=== PATIENT | male | born 1985 | race African-American/Black ===

== ENCOUNTER → 2024-03-30 | Outpatient (CLI) | payer OTHER ==
[~2024-03-30] MED LIST: Colace100 MG PO; Percocet 5-3251 EACH PO; Preparation H26 GM PR
[2024-03-30 11:48] LABS: BASOPHILS ABSOLUTE AUTO 0.02 K/mm3 (0.00-0.23); BASOPHILS PERCENT AUTO 0 % (0-2); EOSINOPHILS ABSOLUTE AUTO 0.04 K/mm3 (0.00-0.68); EOSINOPHILS PERCENT AUTO 1 % (0-6); Hematocrit 34.8 % (37.0-53.0); Hemoglobin 11.8 g/dL (13.5-17.5); IMMATURE GRAN ABSOLUTE AUTO 0.02 K/mm3 (0.00-0.10); IMMATURE GRAN PERCENT AUTO 0 % (0-1); LYMPHOCYTES ABSOLUTE AUTO 0.83 K/mm3 (0.84-5.20); LYMPHOCYTES PERCENT AUTO 17 % (21-46); MONOCYTES ABSOLUTE AUTO 0.64 K/mm3 (0.16-1.47); MONOCYTES PERCENT AUTO 13 % (4-13); Mean Corpuscular HGB Conc 33.9 g/dL (31.5-36.5); Mean Corpuscular Volume 83 fL (80-100); NEUTROPHILS ABSOLUTE AUTO 3.37 K/mm3 (1.96-9.15); NEUTROPHILS PERCENT AUTO 69 % (41-73); Platelet Count 414 K/mm3 (150-400); RDW Coefficient Variation 12.5 % (11.7-14.2); RDW Standard Deviation 37.4 fL (35.1-46.3); Red Blood Cell Count 4.22 M/mm3 (4.30-5.90); White Blood Cell Count 4.92 K/mm3 (4.00-11.30)
[2024-03-30 11:59] LABS: Albumin, Blood 2.5 g/dL (3.4-5.0); Albumin/Globulin Ratio 0.5 (0.8-1.8); Bilirubin, Total 0.4 mg/dL (0.1-1.0); Bun/Creatinine Ratio 3.1 (12.0-20.0); Calcium, Blood 8.6 mg/dL (8.5-10.1); Creatinine, Blood 0.65 mg/dL (0.60-1.20); Globulin, Blood 5.3 g/dL (2.2-4.0); Potassium, Blood 3.4 mmol/L (3.5-5.5); Total Protein, Blood 7.8 g/dL (6.4-8.2)
== END ==
LOC: LAB SHORT 11:44 → LAB 11:44
PROVIDERS: Chiropractor
DX: R10.9 Unspecified abdominal pain (principal)
CPT/HCPCS: 80053; 83690; 85025

== ENCOUNTER 2024-04-08 13:21 | Emergency (ER) | payer OTHER ==
[~2024-04-08] VITALS: Ht 172.7 cm; Wt 64.0 kg
[2024-04-08 13:58] LABS: BASOPHILS ABSOLUTE AUTO 0.03 K/mm3 (0.00-0.23); BASOPHILS PERCENT AUTO 1 % (0-2); EOSINOPHILS ABSOLUTE AUTO 0.01 K/mm3 (0.00-0.68); EOSINOPHILS PERCENT AUTO 0 % (0-6); Hematocrit 35.3 % (37.0-53.0); Hemoglobin 11.9 g/dL (13.5-17.5); IMMATURE GRAN ABSOLUTE AUTO 0.04 K/mm3 (0.00-0.10); IMMATURE GRAN PERCENT AUTO 1 % (0-1); LYMPHOCYTES ABSOLUTE AUTO 0.79 K/mm3 (0.84-5.20); LYMPHOCYTES PERCENT AUTO 13 % (21-46); MONOCYTES ABSOLUTE AUTO 0.69 K/mm3 (0.16-1.47); MONOCYTES PERCENT AUTO 12 % (4-13); Mean Corpuscular HGB 27.5 pg (26.0-34.0); Mean Corpuscular HGB Conc 33.7 g/dL (31.5-36.5); Mean Corpuscular Volume 82 fL (80-100); Mean Platelet Volume 8.7 fL (9.1-12.4); NEUTROPHILS ABSOLUTE AUTO 4.44 K/mm3 (1.96-9.15); NEUTROPHILS PERCENT AUTO 74 % (41-73); Platelet Count 475 K/mm3 (150-400); RDW Coefficient Variation 12.5 % (11.7-14.2); RDW Standard Deviation 37.9 fL (35.1-46.3); Red Blood Cell Count 4.32 M/mm3 (4.30-5.90)
[2024-04-08 14:11] LABS: Albumin, Blood 2.4 g/dL (3.4-5.0); Albumin/Globulin Ratio 0.5 (0.8-1.8); Bilirubin, Total 0.4 mg/dL (0.1-1.0); Bun/Creatinine Ratio 10.5 (12.0-20.0); Calcium, Blood 8.8 mg/dL (8.5-10.1); Creatinine, Blood 0.57 mg/dL (0.60-1.20); Globulin, Blood 5.3 g/dL (2.2-4.0); Potassium, Blood 4.2 mmol/L (3.5-5.5); Total Protein, Blood 7.7 g/dL (6.4-8.2)
[2024-04-08] MEDS ORDERED: Colace100 MG PO (18:26)
[2024-04-08] MEDS ORDERED: Preparation H26 GM PR (18:26)
[2024-04-08] MEDS ORDERED: Percocet 5-3251 EACH PO (18:26)
== END 2024-04-08 18:35 | disposition home or self-care (01) ==
LOC: ER 13:21
PROVIDERS: Emergency Medicine
DX: C76.2 Malignant neoplasm of abdomen (principal); K64.9 Unspecified hemorrhoids; D17.9 Benign lipomatous neoplasm, unspecified
CPT/HCPCS: 74177; 80053; 83690; 85025; 99284-25; Q9967

== ENCOUNTER 2024-04-12 15:49 | Inpatient (IN) | payer OTHER ==
[~2024-04-12] VITALS: Ht 172.7 cm; Wt 61.4 kg
[2024-04-12 16:58] LABS: BASOPHILS ABSOLUTE AUTO 0.03 K/mm3 (0.00-0.23); BASOPHILS PERCENT AUTO 1 % (0-2); EOSINOPHILS ABSOLUTE AUTO 0.01 K/mm3 (0.00-0.68); EOSINOPHILS PERCENT AUTO 0 % (0-6); Hemoglobin 10.9 g/dL (13.5-17.5); IMMATURE GRAN ABSOLUTE AUTO 0.04 K/mm3 (0.00-0.10); IMMATURE GRAN PERCENT AUTO 1 % (0-1); LYMPHOCYTES ABSOLUTE AUTO 0.69 K/mm3 (0.84-5.20); LYMPHOCYTES PERCENT AUTO 11 % (21-46); MONOCYTES ABSOLUTE AUTO 0.65 K/mm3 (0.16-1.47); MONOCYTES PERCENT AUTO 10 % (4-13); Mean Corpuscular HGB 27.1 pg (26.0-34.0); Mean Corpuscular Volume 82 fL (80-100); Mean Platelet Volume 8.4 fL (9.1-12.4); NEUTROPHILS ABSOLUTE AUTO 5.08 K/mm3 (1.96-9.15); NEUTROPHILS PERCENT AUTO 78 % (41-73); Platelet Count 490 K/mm3 (150-400); RDW Coefficient Variation 12.8 % (11.7-14.2); RDW Standard Deviation 38.7 fL (35.1-46.3); Red Blood Cell Count 4.02 M/mm3 (4.30-5.90)
[2024-04-12 18:23] LABS: Albumin, Blood 2.2 g/dL (3.4-5.0); Albumin/Globulin Ratio 0.4 (0.8-1.8); Bilirubin, Total 0.3 mg/dL (0.1-1.0); Bun/Creatinine Ratio 13.2 (12.0-20.0); Calcium, Blood 8.4 mg/dL (8.5-10.1); Creatinine, Blood 0.6 mg/dL (0.60-1.20); Globulin, Blood 5.5 g/dL (2.2-4.0); Potassium, Blood 3.5 mmol/L (3.5-5.5); Total Protein, Blood 7.7 g/dL (6.4-8.2)
[2024-04-12 20:00] LABS: Source, Urine Condom Cath
[2024-04-12 20:04] LABS: Bilirubin, Urine Neg (Neg); Blood, Urine Neg (Neg); Glucose Qualitative, Urine Neg (Neg); Ketones, Urine Neg (Neg); Leukocyte Esterase, Urine Neg (Neg); Nitrite, Urine Neg (Neg); Protein, Urine Neg (Neg); Urobilinogen, Urine NORM (Normal)
[2024-04-12 20:10] LABS: Appearance, Urine Clear (Clear); Color, Urine Yellow (P-Yellow)
[2024-04-12 20:39] LABS: Influenza A, PCR NEGATIVE (NEGATIVE); Influenza B, PCR NEGATIVE (NEGATIVE); Resp Syncytial Virus, PCR NEGATIVE (NEGATIVE); SARS-Cov-2 (COVID-19) PCR, MMC NEGATIVE (NEGATIVE)
[2024-04-12] MEDS ORDERED: Piperacillin/Tazobactam Sod 4.5 GM in NS 100 ML IV ONE (21:50)
--- NOTE | 2024-04-13 00:02 | NUR ---
NEW ADMIT. PATIENT IS A NEW ADMIT TO ROOM 343 FROM THE ER. PATIENT ARRIVED TO ROOM 343 VIA WHEELCHAIR AND 1P TRANSFER. PATIENT ABLE TO SELF AMBULATE TO BED FROM WHEEL CHAIR WITH STEADY GAIT. PATIENT ARRIVED TO ROOM WITH FATHER AT SIDE WITH 2 PERSONAL BELONGINGS BAGS. PATIENT ORIENTED TO ROOM. THIS RN TO ASSUME CARE.
[2024-04-13 00:08] VITALS: BP 112/77
[2024-04-13] MEDS ORDERED: Ondansetron HCl 2 MG / ML 2ML Vial IV PRN (00:50)
[2024-04-13] MEDS ORDERED: FLU VACC TS2024-25(6MOS UP)/PF 45 MCG/0.5 ML SYRINGE IM SCH (00:50)
[2024-04-13] MEDS ORDERED: FentaNYL Citrate 50 MCG/ML 2 ML Injection IV PRN (00:50)
[2024-04-13] MEDS ORDERED: NS 1,000 ML IV SCH (00:50)
[2024-04-13] MEDS ORDERED: Albumin (Human) 25gm/100ml 100 ML IV ONE (02:50)
[2024-04-13] MEDS ORDERED: Cefepime HCl 1,000 MG in NS 100 ML IV SCH (03:00)
--- NOTE | 2024-04-13 03:59 | NUR ---
SHIFT SUMMARY. PATIENT IS A&OX4, PATIENT IS ABLE TO MAKE NEEDS KNOWN. PATIENT HAS A STRONG ACCENT THAT IS DIFFICULT TO UNDERSTAND AT TIMES. PATIENT IS PLEASANT AND DENIES PAIN AT THIS TIME. PATIENT HAS NS RUNNING AT 75MLS/HR AT THIS TIME. PATIENT RECEIVING ALBUMIN AND ABX. PATIENT TO HAVE A PARACENTESIS 04/13/24. PATIENT RESTING IN BED WITH RESPIRATIONS EQUAL AND UNLABORED. BED IS LOCKED IN THE LOWEST POSITION WITH CALL LIGHT IN REACH. CARE IS ONGOING.
[2024-04-13] MEDS ORDERED: Ampicillin Sod/Sulbactam Sod 3 GM in NS 100 ML IV SCH (06:00)
[2024-04-13 06:04] VITALS: BP 116/75
[2024-04-13 06:22] LABS: BASOPHILS ABSOLUTE AUTO 0.03 K/mm3 (0.00-0.23); BASOPHILS PERCENT AUTO 1 % (0-2); EOSINOPHILS PERCENT AUTO 0 % (0-6); Hematocrit 31.6 % (37.0-53.0); Hemoglobin 10.7 g/dL (13.5-17.5); IMMATURE GRAN ABSOLUTE AUTO 0.03 K/mm3 (0.00-0.10); IMMATURE GRAN PERCENT AUTO 1 % (0-1); LYMPHOCYTES ABSOLUTE AUTO 0.68 K/mm3 (0.84-5.20); LYMPHOCYTES PERCENT AUTO 15 % (21-46); MONOCYTES ABSOLUTE AUTO 0.59 K/mm3 (0.16-1.47); MONOCYTES PERCENT AUTO 13 % (4-13); Mean Corpuscular HGB 27.7 pg (26.0-34.0); Mean Corpuscular HGB Conc 33.9 g/dL (31.5-36.5); Mean Corpuscular Volume 82 fL (80-100); Mean Platelet Volume 8.5 fL (9.1-12.4); NEUTROPHILS ABSOLUTE AUTO 3.23 K/mm3 (1.96-9.15); NEUTROPHILS PERCENT AUTO 71 % (41-73); Platelet Count 446 K/mm3 (150-400); RDW Coefficient Variation 13.1 % (11.7-14.2); RDW Standard Deviation 39.3 fL (35.1-46.3); Red Blood Cell Count 3.86 M/mm3 (4.30-5.90); White Blood Cell Count 4.56 K/mm3 (4.00-11.30)
[2024-04-13 06:37] LABS: Albumin, Blood 2.4 g/dL (3.4-5.0); Albumin/Globulin Ratio 0.5 (0.8-1.8); Bilirubin, Total 0.4 mg/dL (0.1-1.0); Bun/Creatinine Ratio 7.4 (12.0-20.0); Calcium, Blood 8.6 mg/dL (8.5-10.1); Creatinine, Blood 0.54 mg/dL (0.60-1.20); Globulin, Blood 4.6 g/dL (2.2-4.0); Potassium, Blood 3.6 mmol/L (3.5-5.5)
[2024-04-13 08:28] VITALS: BP 113/78
[2024-04-13] MEDS ORDERED: Magnesium Hydroxide Conc 10 ML UDC PO PRN (09:00)
[2024-04-13] MEDS ORDERED: Polyethylene Glycol 3350 17 gm PO PRN (09:00)
[2024-04-13] MEDS ORDERED: Bisacodyl 10 MG Supp PR PRN (09:05)
[2024-04-13 11:03] LABS: International Normalized Ratio 1.19; Prothrombin Time Results 12.6 Sec (9.7-11.5)
[2024-04-13 15:24] VITALS: BP 113/71
--- NOTE | 2024-04-13 18:32 | NUR ---
SUMMARY- PT A/O X4, INDEPENDANT IN ROOM, STEADY ON FEET GOES TO THE BATHROOM TO VOID. HAS SEVERE HEMMHROIDS, ORDER FOR PREP H CREAM TO BE ADMIN TONIGHT AND STOOL SOFTNERS. TOLERATING FOOD AND FLUID. STATES THE NEED TO HAVE A BM. ORDER FOR LAXATIVE. PT HAD U.S. GUIDED PARACENTESIS DRAINING 3.7L FROM ABD ASCITES. PT FEELS MUCH BETTER AND LESS PRESSURE. DENIES NEED FOR PAIN MEDS. AND DENIES NAUSEA. DR UGALDE (RADIOLOGY) STAETS HE CAN NOT REACH THE ABCESS- RN MADE A CALL TO DR WOLFE TO NOTIFY HER THAT PROCEDURE COULDN'T BE DONE. PT STAYING ANOTHER NIGHT FOR CONSULT WITH SKINNY IN AM. WILL REPORT TO SHARATH PARHAM
[2024-04-13 19:55] VITALS: BP 109/74
[2024-04-13] MEDS ORDERED: Phenyleph/Mineral Oil/Petrolat 1 APPLIC/57 GM Tube PR SCH (21:00)
[2024-04-14] MEDS ORDERED: Acetaminophen 325 MG TABLET PO PRN (01:55)
[2024-04-14 03:27] VITALS: BP 104/72
--- NOTE | 2024-04-14 04:31 | NUR ---
SHIFT SUMMARY. PATIENT IS A&OX4. PATIENT IS ABLE TO MAKE HIS NEEDS KNOWN-PATIENT HAS A HEAVY ACCENT THAT IS DIFFICULT TO UNDERSTAND AT TIMES-PATIENT WILL REPEAT. PATIENT DENIES PAIN. PATIENT FEBRILE THIS SHIFT WITH AN ORAL TEMPERATURE OF 101.8 DEGREES FAHRENHEIT-ORDER FOR TYLENOL OBTAINED FROM DOCTOR AND ADMINISTERED TO PATIENT-TEMPERATURE DOWN TO 99.3 DEGREES FAHRENHEIT. PATIENT SLEEPING WITH RESPIRATIONS EQUAL AND UNLABORED. BED IS LOCKED IN THE LOWEST POSITION WITH CALL LIGHT IN REACH. CARE IS ONGOING.
[2024-04-14 07:59] VITALS: BP 106/73
[2024-04-14] MEDS ORDERED: Docusate Sodium 100 MG Cap PO SCH (09:00)
[2024-04-14 15:33] VITALS: BP 100/67
--- NOTE | 2024-04-14 18:15 | NUR ---
SUMMARY- PT A/O X4. AWAITING CONSULT FOR SKINNY CALLED IN 1130 AM, HAS NOT BEEN IN TO SEE PT YET. CLEARS MOST OF THE DAY, ATE DINNER BECAUSE NO PROCEDURE TONIGHT- PT HAD A GOOD BM TODAY. ABD LESS DISTENDED AFTER PARA, FEELS MUCH LESS PRESURE IN ABD. DENIES PAIN OR NAUSEA. WILL REPORT TO NOC RN
[2024-04-14 20:07] VITALS: BP 105/67
[2024-04-15] MEDS ORDERED: NS 250 ML IV PRN (00:20)
--- NOTE | 2024-04-15 05:03 | NUR ---
SHIFT SUMMARY ADMITTED FOR MALIGNANT ASCITES. FULL CODE. PLAN IS FOR IV ANTIB RX. IR CONSULT SKINNY WILL DRAIN AN ABDOMINAL ABSCESS FOUND ON CT SCAN. THIS PT WILL SEE DR. FAULKNER OUTPT FOR PERITONEAL CANCER TREATMENT DIAGNOSED ON 04/08/2024. PARACENTESIS PERFORMED ON 04/13/2024 - 3.7 LITERS OUT. HE IS ON CLEAR LIQUID DIET OF MIDNIGHT THIS SHIFT. TELEMETRY: NSR @ 94 BPM. INDEPENDENT IN ROOM. ON RA. LOW GRADE FEVERS NOTED, TYLENOL GIVEN.
[2024-04-15 07:51] VITALS: BP 92/64
[2024-04-15 13:37] LABS: Albumin, Body Fluid 1.9 g/dL
[2024-04-15 13:44] LABS: Glucose, Body Fluid 97 mg/dL; Lactate Dehydrogenase, Body Fl 227 U/L; Protein, Body Fluid 5.2 g/dL; Triglycerides, Body Fluid 32 mg/dL
[2024-04-15 15:46] VITALS: BP 106/66
--- NOTE | 2024-04-15 15:57 | NUR ---
[address] WOLFE IN PT ROOM. OKAY KEEP NPO SHE SPOKE TO DR BABB AND HE TO SEE PT TODAY;
--- NOTE | 2024-04-15 15:58 | NUR ---
[address] BABB IR [facility]. THEY RECOMMEND CALL CELL. CALLED HIS CELL. LMTC RE NPO
--- NOTE | 2024-04-15 16:54 | NUR ---
SPOKE TO DR WOLFE RE PT PROCEDURE. AND TO SEE IF PT MAY EAT. SHE CALLED DR BABB. STATES WILL SEE JULIA.
--- NOTE | 2024-04-15 16:57 | NUR ---
PT PLEASANT. COOP A/O X4. NO C/O PAIN. HAS REQUESTED WHEN DR WILL SEE TODAY IS NPO. I HAVE CALLED DR WOLFE AND DR BABB. THIS JOSSELYN DR WOLFE CALLED ME BACK AND STATES DR BABB TO SEE TONITE. PT AMBULATES ABOUT ROOM INDEPENDANTLY. NO NEW CONCERNS NOTED. BED IN LOW POSITION, CALL LITE IN REACH, CALLS APPROP
--- NOTE | 2024-04-15 18:04 | NUR ---
DAY SURG HERE FOR PT AT 2062
--- NOTE | 2024-04-15 19:23 | NUR ---
PT RETURNED TO ROOM. BEDSIDE REPORT GIVEN BY [facility] RN. STATES DR SKINNY HARVEY TO EAT REG DIET NOW. NO SEDATION FOR PROCEDURE. PT UP AMBULATING IN ROOM IND. DRAIN LEFT MID BACK. CREAMY COLOR FLUID IN DRAIN LINE. WOUND CDI. RN STATES DRAIN ONLY TAPED TO PATIENT. NO STITCHES.
[2024-04-15 21:18] VITALS: BP 104/69
--- NOTE | 2024-04-16 05:24 | NUR ---
SHIFT SUMMARY PT IS ALERT AND ORIENTED TIMES 4. PT ABLE TO MAKE NEEDS KNOWN. PT DENIES PAIN. WOUND DRAIN ASSESSED AND EMPTIED. MIDNITE CEFEPIME ADMINISTERED. PT TOLERATED WELL. TELE RUNNING N/S AT 70. SLIGHT ABDOMINAL DISTENTION. PT APPEARED TO SLEEP THROUGH THE NIGHT WITHOUT ISSUES. BED IN LOWEST POSITION, CALL LIGHT WITHIN REACH, RAILS TIMES 2.
[2024-04-16 06:20] VITALS: BP 92/63
[2024-04-16 07:41] VITALS: BP 98/66
--- NOTE | 2024-04-16 09:00 | NUR ---
0900 FAMILY FRIEND IN ROOM, GLADYS GONZALEZ, CAME TO [facility], DEMANDED TO KNOW WHY A DRAIN WAS PLACED IN PT BACK RIBCAGE AND NOT IN PT PT ABDOMEN. ADVISED FRIEND THAT IM A NURSE, NOT A DOCTOR. THAT IS A DR QUESTION. SHE STATES THE PRIMARY RN, I SHOULD KNOW WHY THE DR DEALT WITH THE WRONG PROBLEM. SHE IS ANGRY WITH ME FOR NOT FIXING THIS. I OFFERED TO CALL DR WOLFE TO ROOM. STATES WILL NOT NEED TO TALK TO ME ANYMORE. I CALLED DR WOLFE TO COME SEE PATIENT. SHE ALSO SAID THE [employer] THAT CAME IN TO DRAW BLOOD, AT HER INSTRUCTION, WOULD NOT TAKE BLOOD FROM HIS PERIPHERAL IV SITE. SAID THEY MUST NOT KNOW THEIR JOB. THAT THATS WHAT SHE TOLD THE TECH TO DO. EDUCATED THAT THE [employer] DOES NOT DRAW FROM ANY IV SITE, AND NO ONE WILL DRAW FROM THIS TYPE OF IV SITE. IF IT WAS A POWERGLIDE OR PICC, I WOULD PERFORM THE DRAW, NOT THE [employer]. THEY DO DRAWS DIRECTLY FROM THE PT. SHE STATES THE TECH LEFT AFTER HER INTERACTION.
[2024-04-16 09:48] LABS: BASOPHILS ABSOLUTE AUTO 0.03 K/mm3 (0.00-0.23); BASOPHILS PERCENT AUTO 1 % (0-2); EOSINOPHILS ABSOLUTE AUTO 0.05 K/mm3 (0.00-0.68); EOSINOPHILS PERCENT AUTO 1 % (0-6); Hematocrit 33.5 % (37.0-53.0); Hemoglobin 10.9 g/dL (13.5-17.5); IMMATURE GRAN ABSOLUTE AUTO 0.04 K/mm3 (0.00-0.10); IMMATURE GRAN PERCENT AUTO 1 % (0-1); LYMPHOCYTES ABSOLUTE AUTO 0.87 K/mm3 (0.84-5.20); LYMPHOCYTES PERCENT AUTO 17 % (21-46); MONOCYTES ABSOLUTE AUTO 0.48 K/mm3 (0.16-1.47); MONOCYTES PERCENT AUTO 9 % (4-13); Mean Corpuscular HGB Conc 32.5 g/dL (31.5-36.5); Mean Corpuscular Volume 83 fL (80-100); Mean Platelet Volume 8.4 fL (9.1-12.4); NEUTROPHILS ABSOLUTE AUTO 3.64 K/mm3 (1.96-9.15); NEUTROPHILS PERCENT AUTO 71 % (41-73); Platelet Count 501 K/mm3 (150-400); RDW Coefficient Variation 12.9 % (11.7-14.2); RDW Standard Deviation 39.3 fL (35.1-46.3); Red Blood Cell Count 4.03 M/mm3 (4.30-5.90); White Blood Cell Count 5.11 K/mm3 (4.00-11.30)
--- NOTE | 2024-04-16 10:00 | NUR ---
DR WOLFE TO ROOM AND DISCUSSED WITH PT AND FAMILY MEMBER, GLADYS. DR WOLFE LEFT ROOM AFTER LONG DISCUSSION AND STATES THEY HAVE A BETTER UNDERSTANDING OF PLAN AT THIS TIME. PLAN IS TO HAVE OUTPATIENT PET SCAN ON THURSDAY.
[2024-04-16 10:09] LABS: Bun/Creatinine Ratio 20.2 (12.0-20.0); Calcium, Blood 8.3 mg/dL (8.5-10.1); Creatinine, Blood 0.5 mg/dL (0.60-1.20); Potassium, Blood 4.3 mmol/L (3.5-5.5)
[2024-04-16 15:48] VITALS: BP 97/61
--- NOTE | 2024-04-16 18:24 | NUR ---
PT QUITE PLEASNT AND TALKATIVE TODAY. FRIEND GLADYS, QUITE DISAGREEABLE THIS MORNING. DISCUSSED WITH DR WOLFE AND SHE CAME TO ROOM. FRIEND BETTER. HER DAUGHTER CAME IN THIS AFT AND WE HAD DISCUSSION. MUCH MORE CALM AND COLLECTED. DRAIN IS TAPED TO RIB BACK AND DRAINING SCANT S/S , CDI. PT PLAN IS FOR PET SCAN ON THURSDAY, OUTPATIENT. BED IN LOW POSITION, CALL LITE IN REACH, CALLS APPROP
--- NOTE | 2024-04-16 18:46 | NUR ---
PT TEMP AT 102.1. GAVE PT TYLENOL. HE ATTEMPTED TO REFUSE. FURTHER EDUCATED, AGREES TO TRY. CALLED DR WOLFE. BLOOD CULTURES, 1 EACH ARM. ORDERED
[2024-04-16 19:57] VITALS: BP 98/71
[2024-04-17 03:17] VITALS: BP 95/60
--- NOTE | 2024-04-17 06:25 | NUR ---
SHIFT SUMMARY PT IS ALERT AND ORIENTED TIMES 4. PT ABLE TO MAKE NEEDS KNOWN. PT DENIES PAIN. WOUND DRAIN ASSESSED, LITTLE DRAINAGE. . MIDNITE CEFEPIME ADMINISTERED. PT TOLERATED WELL. TELE RUNNING N/S AT 84 NORMAL SINUS RHYTHM . SLIGHT ABDOMINAL DISTENTION. PT APPEARED TO SLEEP THROUGH THE NIGHT WITHOUT ISSUES. BED IN LOWEST POSITION, CALL LIGHT WITHIN REACH, RAILS TIMES 2.
[2024-04-17 07:45] VITALS: BP 108/73
--- NOTE | 2024-04-17 07:59 | NUR ---
PATIENT NOTED TO BE RUNNING FEVER. INITIALLY ACCEPTED OFFER OF APAP, BUT AFTER RETURNING TO ROOM WITH SAID MEDICATION, HE REFUSED, STATING HE'D LIKE TO TRY WALKING AROUND TO HELP DECREASE FEVER. EDUCATION PROVIDED REGARDING IMPORTANCE OF BOTH HOMEOPATHIC AND MEDICINAL TREATMENTS FOR FEVER. APAP HELD THROUGH MUTUAL DECISION MAKING.
[2024-04-17] MEDS ORDERED: MetroNIDAZOLE 500MG/NS 100 ml 100 ML IV SCH (12:00)
[2024-04-17 15:34] VITALS: BP 102/72
--- NOTE | 2024-04-17 18:20 | NUR ---
END OF SHIFT SUMMARY: A&Ox4. PLEASANT AND COOPERATIVE WITH CARE. CALLS APPROPRIATELY AND IS ABLE TO ADVOCATE NEEDS EFFECTIVELY. AMBULATES INDEPENDENTLY WITHIN THE ROOM. CONTINENT OF BOTH BOWEL AND BLADDER. LBM TODAY. MEDS WHOLE WITH FLUIDS. TELE NORMAL SINUS IN 80s. NO C/O PAIN OR DISCOMFORT. DENIED OFFER OF APAP SEVERAL TIMES TODAY FOR FEVER. THIS RN AND DR SUERO BOTH PROVIDED EDUCATION REGARDING IMPORTANCE OF FEVER CONTROL. BED IN LOWEST POSITION. CALL LIGHT WITHIN REACH. ALL NEEDS MET. REPORT TO ONCOMING NURSE.
[2024-04-17 19:33] VITALS: BP 111/79
[2024-04-18 04:05] VITALS: BP 119/84
--- NOTE | 2024-04-18 05:58 | NUR ---
SHIFT SUMMARY PT IS ALERT AND ORIENTED TIMES 4. PT ABLE TO MAKE NEEDS KNOWN. PT DENIES PAIN. WOUND DRAIN ASSESSED AND FLUSHED PER ORDER. THERE IS STILL MINIMAL DRAINAGE. . MIDNITE CEFEPIME ADMINISTERED WELL METRONIDAZOLE. PT ASKED TO TAKE A 30 MIN BREAK IN BETWEEN MED ADMINISTRATION SO HE COULD EAT AND PRAY. PT STATED THAT THE BACK TO BACK MEDICATION IS HARD ON HIS BODY AND TOLERATES THE LITTLE BREAK BETTER.. TELE RUNNING N/S AT 95 NORMAL SINUS RHYTHM . SLIGHT ABDOMINAL DISTENTION. PT APPEARED TO SLEEP THROUGH THE NIGHT WITHOUT ISSUES. BED IN LOWEST POSITION, CALL LIGHT WITHIN REACH, RAILS TIMES 2.
[2024-04-18 07:17] VITALS: BP 98/62
[2024-04-18] MEDS ORDERED: ACET325 PO (11:01)
[2024-04-18] MEDS ORDERED: AMOCLA875 PO (11:02)
[2024-04-18] MEDS ORDERED: METR500 PO (11:03)
[2024-04-18] MEDS ORDERED: ONDA4ODT MM (11:04)
[2024-04-18] MEDS ORDERED: MIRALAX17 GM PO (11:05)
--- NOTE | 2024-04-18 15:45 | NUR ---
DISCHARGE SUMMARY: A&Ox4. COOPERATIVE WITH MOST CARE, THOUGH PARTICULAR IN WHICH THE WAY CARE IS PROVIDED. DOES NOT LIKE LONG ABx Tx EVEN THOUGH HE IS ONLY LYING IN BED DURING THEM. CALLS APPROPRIATELY AND IS ABLE TO ADVOCATE NEEDS EFFECTIVELY. FAMILY AT BEDSIDE MOST OF DAY. AMBULATES INDEPENDENTLY. CONTINENT OF BOWEL AND BLADDER. MEDS WHOLE WITH FLUIDS. NO C/O PAIN OR DISCOMFORT. DR SAMANO TO BEDSIDE AND FLUSHED DRAIN; SANGUINEOUS, PURULENT DRAINAGE NOTED IN DRAIN TUBE AND COLLECTION BAG.DC'd IN ANTICIPATION OF GOING TO IMAGING FOR PET/CT SCAN. MEDICATIONS FAXED TO [facility]. INSTRUCTED TO FOLLOW-UP WITH PCP, IR AND ONCOLOGY. PATIENT LEFT FLOOR AT WITH ALL BELONGINGS AND DISCHARGE PACKET AT 1226, ESCORTED BY [facility] AND [facility]. TRANSPORTATION PROVIDED BY FAMILY.
== END 2024-04-18 12:12 | disposition home or self-care (01) | DRG 375 ==
LOC: ER 15:49 → MEDS 23:10
PROVIDERS: Internal Medicine; Physician Assistant; Student in an Organized Health Care Education/Training Program; ADMIT Internal Medicine
PROC: 0W9G3ZZ Drainage of Peritoneal Cavity, Percutaneous Approach (ICD-10-PCS; principal; 2024-04-13)
PROC: 0J9630Z Drainage of Chest Subcutaneous Tissue and Fascia with Drainage Device, Percutaneous Approach (ICD-10-PCS; 2024-04-15)
DX: C78.6 Secondary malignant neoplasm of retroperitoneum and peritoneum (principal); C48.2 Malignant neoplasm of peritoneum, unspecified; E87.1 Hypo-osmolality and hyponatremia; L02.211 Cutaneous abscess of abdominal wall; R18.0 Malignant ascites; R64 Cachexia; D63.0 Anemia in neoplastic disease; E87.8 Other disorders of electrolyte and fluid balance, not elsewhere classified; E83.51 Hypocalcemia; Z68.20 Body mass index [BMI] 20.0-20.9, adult
CPT/HCPCS: 0241U; 36415; 49083; 49405; 71046; 74177; 76604; 76937; 80048; 80053; 81003; 82042; 82378; 82728; 82945; 83540; 83550; 83605; 83615; 83880; 84157; 84478; 85025; 85610; 85730; 86301; 87040; 87070; 87075; 87081; 87205; 88108; 88305; 99285-25; A9270; C1729; C1769; J0692; J2543; J7030; J7050; P9047; Q9967